=== PATIENT | female | born 1950 | race Two or more races ===

== ENCOUNTER 2019-07-19 12:44 | Inpatient (IN) | payer OTHER ==
[2019-07-16 16:09] LABS: Urine Bacteria NONE SEEN /hpf (None Seen); Urine Blood Negative /uL (Negative); Urine Specific Gravity 1.008 (1.001-1.035); Urine WBC 24 /hpf (0 - 5)
[2019-07-16 16:16] LABS: Basophils # (auto) 0 uL; Basophils % (auto) 0.5 % (0.0-2.0); Eosinophils # (auto) 0.3 uL; Eosinophils % (auto) 5.3 % (0.0-7.0); Hematocrit 32.1 % (36.0-46.0); Lymphocytes # (auto) 1.6 uL; Lymphocytes % (auto) 29.9 % (10.0-50.0); Mean Corpuscular Hemoglobin 32.8 pg (28.0-32.0); Mean Corpuscular Hgb Conc. 34.3 g/dL (32.0-36.0); Mean Corpuscular Volume 95.6 fL (80.0-100.0); Monocytes # (auto) 0.5 uL; Neutrophils % (auto) 54.3 % (37.0-80.0); Platelet Count (auto) 271 10^3/uL (140-450); Red Blood Cells 3.36 10^6/uL (4.0-5.20); Red Cell Distribution Width 13.4 % (11.8-14.3); White Blood Cell 5.5 10^3/uL (4.4-10.8)
[2019-07-16 16:21] LABS: INR 0.93 (0.9-1.15); Partial Thromboplastin Time 25.6 sec (23.64-32.05)
[2019-07-16 16:29] LABS: BUN/Creatinine Ratio 12.6; Calcium 8.5 mg/dL (8.5-10.1); Potassium 3.9 mmol/L (3.5-5.1)
[~2019-07-19] VITALS: Ht 160 cm; Wt 74.8 kg
[2019-07-19] MEDS ORDERED: ceFAZolin 1GM/50ML 100 ML IV ONE (14:49)
[2019-07-19] MEDS ORDERED: LIDOCAINE W/ EPINEPHRINE 1 % INJ 30ML ONE (15:40)
[2019-07-19] MEDS ORDERED: BUPIVACAINE 0.25% INJ 50ML VIAL ONE (15:41)
[2019-07-19] MEDS ORDERED: ACETAMINOPHEN 500 MG TAB PO PRN (16:00)
[2019-07-19] MEDS ORDERED: ceFAZolin 1GM/50ML 50 ML IV ONE (16:00)
[2019-07-19] MEDS ORDERED: MORPHINE SULF INJ 2 MG/ML SYRINGE 1ML IV PRN ×2 (16:00)
[2019-07-19] MEDS ORDERED: NITROGLYCERIN 0.4 MG SL TAB SL PRN (16:00)
[2019-07-19] MEDS ORDERED: fentaNYL CITRATE 100 MCG/2 ML VL ONE (16:24)
[2019-07-19] MEDS ORDERED: PROPOFOL 10 MG/ML 20 ML IV ONE (16:24)
[2019-07-19] MEDS ORDERED: ONDANSETRON HCL 4 MG/2 ML VIAL ONE (16:24)
[2019-07-19] MEDS ORDERED: fentaNYL CITRATE 10 ML ONE (16:24)
[2019-07-19] MEDS ORDERED: HYDROmorphone HCL 2 MG/ML VL ONE (16:24)
[2019-07-19] MEDS ORDERED: ROCURONIUM 10MG/ML 10ML VIAL IV ONE (16:24)
[2019-07-19] MEDS ORDERED: SODIUM CHLORIDE LOCK 10 ML ONE (16:24)
[2019-07-19] MEDS ORDERED: MIDAZOLAM HCL 1MG/1ML-2 ML VIAL ONE (16:24)
[2019-07-19] MEDS ORDERED: SUCCINYLCHOLINE CHLORIDE 20 MG/ML 10ML VIAL IV ONE (18:35)
[2019-07-19] MEDS ORDERED: METHYLENE BLUE 0.5% 5MG/ML 10ml AMP IV ONE (18:42)
[2019-07-19] MEDS ORDERED: METOCLOPRAMIDE HCL 5MG/ml INJ 2ml VIAL IV PRN (18:45)
[2019-07-19] MEDS ORDERED: HYDROmorphone HCL 2 MG/ML VL IV PRN (18:45)
[2019-07-19] MEDS ORDERED: fentaNYL CITRATE 100 MCG/2 ML VL IV PRN (18:45)
[2019-07-19] MEDS ORDERED: MORPHINE SULFATE 4 MG/ML SYR/VIAL IV PRN (18:45)
[2019-07-19] MEDS ORDERED: LIDOCAINE 2% (LOCAL ANESTH.) PF 5ml SDV ONE (19:20)
[2019-07-19] MEDS ORDERED: LIDOCAINE HCL 2% TOP JELLY 5ML TOP ONE (19:20)
--- NOTE | 2019-07-19 21:30 | NUR ---
Received report from PACAlo/ Abi.
--- NOTE | 2019-07-19 21:45 | NUR ---
Received patient in bed sleeping with eyes closed, responds to verbal stimuli, however, pt will go back to sleep and close eyes immediately. Patient's respiration even and unlabored, no non verbal cues to pain noted and observed. Patient with 5 abdominal surgical incision with dressing, clean dry and intact. Mirza cath draining minimal amount of clear yellow urine with no foul odor. SCD machine to bilateral lower extremities tolerating well. Will continue to monitor.
[2019-07-19 22:00] VITALS: BP 160/75
[2019-07-19] MEDS: SODIUM CHLORIDE 0.9% 1,000 ML IV SCH (23:26)
[2019-07-20 04:39] VITALS: BP 117/59
[2019-07-20] MEDS: SODIUM CHLORIDE 0.9% 1,000 ML IV SCH ×2 (06:09→22:54)
--- NOTE | 2019-07-20 08:00 | NUR ---
PATIENT PROVIDED WITH INCENTIVE SPIROMETER. PATIENT INSTRUCTED ON PROPER USE. RETURN DEMONSTRATION CORRECTLY. WILL CONTINUE CARE.
[2019-07-20 09:00] VITALS: BP 115/64
[2019-07-20] MEDS: ONDANSETRON HCL 4 MG/2 ML VIAL IV PRN ×2 (10:04→17:56)
--- NOTE | 2019-07-20 11:43 | NUR ---
PATIENT AMBULATED APPROXIMATELY 50 FEET WITH WALKER. PATIENT TOLERATED WELL. NO S/S OF DISTRESS NOTED AT TIME.
--- NOTE | 2019-07-20 12:23 | NUR ---
Cruz catheter dc'd Order to discontinue cruz catheter. Cruz dc'd with clean technique following deflation of balloon. Patient tolerated well with no complaints of pain. Continue care.
[2019-07-20 13:00] VITALS: BP 119/54
[2019-07-20 17:30] VITALS: BP 117/65
--- NOTE | 2019-07-20 18:45 | NUR ---
PATIENT HAS NOT URINATED SINCE VALENTINO CATHETER D/C. BLADDER SCAN DONE WITH 0MLS FOUND IN BLADDER. NO DISTENTION NOTED BY THIS RN. INFORMED Amando SMITH OF FINDINGS. RECEIVED NEW ORDERS. TORSia. WILL FOLLOW THROUGH.
--- NOTE | 2019-07-20 18:50 | NUR ---
IV insertion IV access obtained, via clean sterile technique by inserting 20 gauge catheter at RFA after 1 attempt(s). IV secured properly. No trauma to site. Patient tolerated well. NOTE:
--- NOTE | 2019-07-20 19:00 | NUR ---
ENDORSED CARE TO GARDENIA CORBETT. INFORMED OF PATIENT STATUS AND NEW ORDERS.
[2019-07-20] MEDS ORDERED: SODIUM CHLORIDE 0.9% 500 ML IV ONE (19:15)
--- NOTE | 2019-07-20 20:30 | NUR ---
NS 0.9 500MLS ADMINISTERED BY PREVIOUS SHIFT DONE. ENCOURAGED PATIENT TO VOID. HOWEVER, PATIENT STATED UNABLE. ENCOURAGED PATIENT TO DRINK FLUIDS, HOWEVER, PATIENT STATED FEELING NAUSEOUS. ZOFRAN ALREADY GIVEN BY PRIOR SHIFT RN AND NOT DUE AT THIS TIME. OFFERED PATIENT ICE CHIPS. WILL CONTINUE TO MONITOR.
--- NOTE | 2019-07-20 20:59 | NUR ---
Patient in bed alert and oriented x 4 verbally coherent able to make needs known. Patient's respiration even and unlabored, denies pain and discomfort at this time. Plan of care discussed, patient verbalized understanding. All needs attended, will continue to monitor. Addendum: 07/20/19 at 2251 by Ellie Bob RN [id number]
[2019-07-20 22:00] VITALS: BP 126/62
--- NOTE | 2019-07-20 22:41 | NUR ---
ENCOURAGED PATIENT TO VOID. ASSISTED PATIENT TO BATHROOM WITH WALKER. PT SEATED AT THE TOILET FOR 10 MINUTES WITH NO URINE OUTPUT. ASSISTED PATIENT BACK TO BED. PATIENT'S ABDOMEN SOFT AND NON DISTENDED. WILL CONTINUE TO MONITOR.
--- NOTE | 2019-07-20 23:55 | NUR ---
Bladder scanner done with charge nurse at bedside. 0 mls in bladder scanner. Patient's abdomen soft and non distended. Will continue to monitor.
--- NOTE | 2019-07-21 04:50 | NUR ---
Patient with temp of 100.4. Acetaminophen given as ordered. Pt with no urine output as of this time. Encouraged pt to urinate, however, patient stated " I can't". Reassessed abdomen, soft, non tender and non distended. Pt with no complaints of pain. Paged Dr. Hong via exchange, awaiting call back.
[2019-07-21 05:00] VITALS: BP 127/67
--- NOTE | 2019-07-21 05:40 | NUR ---
Reassessed patient's temperature, 100.0F Pt stated "I am feeling better" Will continue to monitor.
--- NOTE | 2019-07-21 06:35 | NUR ---
Informed patient will be doing bladder scan again to check for volume, however patient stated " I think I have the urge to urinate" Assisted patient to the bathroom with walker. After 10-15 minutes sitting on the toilet, patient stated was able to urinate "but not a lot, approximately 100 to 150 mls. Instructed patient not to flush after voiding. Noted minimal amount of clear straw colored urine with no sediments or foul odor. Patient further reported no pain during urination, however, tenderness when pressure applied to abdomen. Still awaiting MD's call back. Will endorse to am shift RN.
--- NOTE | 2019-07-21 07:30 | NUR ---
PATIENT RESTING IN BED. NO COMPLAINTS OF PAIN AT THIS TIME. PATIENT STATS SHE URINATED AT THIS TIME. NO S/S OF DISTRESS NOTED AT THIS TIME. PATIENT REPORTS FEELING MUCH BETTER. NO DRAINAGE TO SURGICAL SITES. PATIENT UPDATED ON POC. ALL QUESTIONS ANSWERED, BED IN LOWEST LOCKED POSITION WITH CALL LIGHT WITHIN REACH.
--- NOTE | 2019-07-21 08:00 | NUR ---
PER PATIENT, SHE HAS PRESCRIPTIONS FOR ANTIBIOTICS AND PAIN MEDICINE AT HOME THAT WERE PROVIDED PRIOR TO PROCEDURE.
--- NOTE | 2019-07-21 08:45 | NUR ---
SPOKE WITH Amando SMITH. INFORMED OF TEMPERATURE OF 100.4 FROM VINER OPERATOR AND OF NEW TEMPERATURE OF 98.5 THIS AM. STATED OK TO CONTINUE WITH DC AND TO INFORM PATIENT TO CONTINUE TAKING TEMPERATURE AT HOME. WILL FOLLOW THROUGH.
[2019-07-21 09:05] VITALS: BP 129/62
--- NOTE | 2019-07-21 09:10 | NUR ---
Discharge instructions given as ordered. Encourage to follow up with PMD as instructed. Instructed to follow up with Amando Davenport in 2-3weeks. Informed to shower daily per surgeon request. Informed to monitor temperature as well. All questions and concerns addressed. Patient verbalized understanding. IV removed with catheter intact, pressure dressing applied. Patient taken to vehicle via wheelchair with all personal belongings, accompanied by staff and family member. No distress noted at time of departure.
== END 2019-07-21 09:10 | disposition home or self-care (01) | DRG 743 ==
LOC: SUR 12:44 → CENTRAL 23:01
PROVIDERS: ADMIT Obstetrics & Gynecology; ATTEND Obstetrics & Gynecology
PROC: 0UT74ZZ Resection of Bilateral Fallopian Tubes, Percutaneous Endoscopic Approach (ICD-10-PCS; 2019-07-19)
PROC: 0UT24ZZ Resection of Bilateral Ovaries, Percutaneous Endoscopic Approach (ICD-10-PCS; 2019-07-19)
PROC: 0DNW4ZZ Release Peritoneum, Percutaneous Endoscopic Approach (ICD-10-PCS; 2019-07-19)
PROC: 0USG4ZZ Reposition Vagina, Percutaneous Endoscopic Approach (ICD-10-PCS; 2019-07-19)
PROC: 8E0W4CZ Robotic Assisted Procedure of Trunk Region, Percutaneous Endoscopic Approach (ICD-10-PCS; 2019-07-19)
PROC: 0UT94ZL Resection of Uterus, Supracervical, Percutaneous Endoscopic Approach (ICD-10-PCS; principal; 2019-07-19 16:45)
DX: N81.4 Uterovaginal prolapse, unspecified (principal); N73.6 Female pelvic peritoneal adhesions (postinfective); I10 Essential (primary) hypertension; K21.9 Gastro-esophageal reflux disease without esophagitis; Z90.711 Acquired absence of uterus with remaining cervical stump; Z79.899 Other long term (current) drug therapy; Z88.8 Allergy status to other drugs, medicaments and biological substances; Z88.6 Allergy status to analgesic agent
CPT/HCPCS: 36415; 80048; 81001; 85025; 85610; 85730; 86850; 86900; 86901; 87086; G0378; J0330; J0690; J2001; J2250; J2405; J2704; J3490